=== PATIENT | female | born 1995 ===

== ENCOUNTER 2017-02-02 16:13 | Emergency (ER) | payer SELFPAY ==
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
--- NOTE | 2017-02-02 18:58 | CT ---
EXAM: CT Maxillofacial Without Intravenous Contrast CLINICAL HISTORY: 21 years old, female; Pain; Eye pain and face pain; Left; Additional info: Facial pain TECHNIQUE: Axial computed tomography images of the face without intravenous contrast. All CT scans at this facility use one or more dose reduction techniques, viz.: automated exposure control; ma/kV adjustment per patient size (including targeted exams where dose is matched to indication; i.e. head); or iterative reconstruction technique. Coronal and sagittal reformatted images were created and reviewed. COMPARISON: No relevant prior studies available. FINDINGS: Bones: No acute fracture. Soft tissues: No significant abnormality appreciated on CT. Correlate clinically. Orbits: No acute abnormality as visualized. Sinuses: Minimal paranasal sinus disease, involving the left maxillary and ethmoid sinus. No air-fluid levels. Evidence of supernumerary tooth within the left mandible. IMPRESSION: Negative for acute fracture.
--- NOTE | 2017-02-02 19:02 | CT ---
EXAM: CT Cervical Spine Without Intravenous Contrast CLINICAL HISTORY: 21 years old, female; Pain; Neck pain TECHNIQUE: Axial computed tomography images of the cervical spine without intravenous contrast. All CT scans at this facility use one or more dose reduction techniques, viz.: automated exposure control; ma/kV adjustment per patient size (including targeted exams where dose is matched to indication; i.e. head); or iterative reconstruction technique. Coronal and sagittal reformatted images were created and reviewed. COMPARISON: No relevant prior studies available. FINDINGS: Vertebrae/discs: No acute fracture. No acute findings. No severe spinal canal stenosis. Mild degenerative changes, most notable at C5-C6 with mild disc osteophyte formation. Straightening/reversal of the cervical lordosis. Soft tissues: No acute findings. Lung apices: No acute abnormality as visualized. IMPRESSION: Negative for acute fracture. Details/findings as above.
[2017-02-02 19:23] VITALS: BP 117/84; PULSE 76; RESP 20; TEMP 98.4; O2SAT 100
== END 2017-02-02 20:20 | disposition home or self-care (01) ==
LOC: C.ER 16:13
DX: S00.83XA Contusion of other part of head, initial encounter (principal); W22.8XXA Striking against or struck by other objects, initial encounter

== ENCOUNTER 2018-07-12 21:06 | Inpatient (IN) | payer MEDICAID ==
[2018-07-12] MEDS ORDERED: Sodium Chloride 0.9% 1,000 ML IV ONE (21:55)
--- NOTE | 2018-07-12 21:55 | C.PDOC ---
History Of Present Illness 22 year old female brought to ED by BLS for intention to overdose on 60 pills of Tylenol at 7pm per friend. Patient is a poor historian. Dose is unknown and co- ingestion is unknown. Patient vomited prior to arrival. Patient reports no symptoms at this time. 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 UNK DOSE. UNK OTHER COINGESTION. 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 PT REPORTS NO SX @ THIS TIME ROS LIMITED EXAM NONTOXIC HEENT ANICTER MMM ABD NEG PSYCH CALM REFUSING TO TALK NO ACUTE PSYCHOSIS, INTOX REMAINDER NEG Time Seen by Provider: 07/12/18 21:45 History Per: Patient History/Exam Limitations: other (poor historian) Onset/Duration Of Symptoms: Hrs (3) Current Symptoms Are (Timing): Gone Suicide/Self Injury Attempted (Context): Ingestion Ingestion Of Substance: Tylenol Modifying Factor(s): None Associated Symptoms: Suicidal Thoughts, Suicidal Plan, Other (suicidal attempt) Additional History Per: EMS, Friend Past Medical History Reviewed: Historical Data, Nursing Documentation, Vital Signs - Medical History PMH: Anemia (THALASSEMIA), Sickle Cell Disease ("FALCEMICA" IN [place]) Surgical History: No Surg Hx Family History: States: Unknown Family Hx - Social History Hx Alcohol Use: No Hx Substance Use: No - Immunization History Hx Tetanus Toxoid Vaccination: No Hx Influenza Vaccination: No Hx Pneumococcal Vaccination: No Review Of Systems Psych: Positive for: Suicidal ideation, Other (suicidal attempt) Physical Exam - Physical Exam Appears: Non-toxic Skin: Normal Color, Warm, Dry Head: Atraumatic, Normacephalic Eye(s): bilateral: Normal Inspection (anicteric), PERRL, EOMI Oral Mucosa: Moist Neck: Normal ROM, Supple Chest: Symmetrical, No Deformity Cardiovascular: Rhythm Regular, No Murmur Respiratory: No Accessory Muscle Use, No Rales, No Rhonchi, No Wheezing, Other (NARD) Gastrointestinal/Abdominal: Soft, No Tenderness, No Distention, No Guarding, No Rebound Extremity: Capillary Refill (<2 seconds) Extremity: Bilateral: Atraumatic, Normal Color And Temperature, Normal ROM Pulses: Left Radial: Normal, Right Radial: Normal Neurological/Psych: Oriented x3, Other (calm, refusing to talk, no acute psychosis, intoxicated) Gait: Steady ED Course And Treatment - Laboratory Results Result Diagrams: 07/12/18 22:47 07/12/18 22:47 ECG: Interpreted By Me ECG Rhythm: Sinus Rhythm ECG Interpretation: Normal Rate From EC - Radiology CXR: Interpreted by Me CXR Interpretation: Yes: No Acute Disease Progress Note: Labs ordered with drug screen, UA, CBC, EKG and CXR. Patient given Acetadote, IV fluids, and Zofran Progress - Re-Evaluation Re-evaluation Note: 07/12/18 22:33 PER POISON CTR, ADVISE ACETADOTE, REPEAT ACET LEVEL @2300 07/12/18 23:12 AO3, NONTOXIC APPEARS COMFORTABLE NAD. VSS. D/W DR MONTILLA, NO INDICATION FOR ICU ADMISSION FOR ACETADOTE IV D/W DR BAGLEY WILL ADMIT - Data Reviewed Data Reviewed: Lab, Diagnostic imaging, EKG, Old records - Critical Care Citical Care: Excluding Proc Time Critical Care Time: 90 minutes Disposition Counseled Patient/Family Regarding: Studies Performed, Diagnosis - Disposition Disposition: HOSPITALIZED Disposition Time: 23:15 Condition: SERIOUS - POA Present On Arrival: None - Clinical Impression Clinical Impression: Tylenol overdose, Suicide attempt - Scribe Statement The provider has reviewed the documentation as recorded by the Scribe (Rosanne Heller) All medical record entries made by the Scribe were at my direction and personally dictated by me. I have reviewed the chart and agree that the record accurately reflects my personal performance of the history, physical exam, medical decision making, and the department course for this patient. I have also personally directed, reviewed, and agree with the discharge instructions and disposition.
[2018-07-12 22:34] VITALS: BMI 20.3
[2018-07-12] MEDS ORDERED: WATER IVPB STA (22:34)
[2018-07-12] MEDS ORDERED: DEXTROSE 5% IVPB STA (22:34)
[2018-07-12] MEDS ORDERED: ACETYLCYSTEINE IVPB STA (22:34)
[2018-07-12 22:53] LABS: BASO % 0.5 % (0.0-2.0); EOS # 0.1 K/uL (0.0-0.7); EOS % 0.9 % (0.0-4.0); HEMOGLOBIN 12.7 g/dL (11.0-16.0); LYMPH # 2.7 K/uL (1.0-4.3); LYMPH % 30.5 % (20.0-40.0); MEAN CELL VOLUME 85.6 fL (81.0-99.0); MEAN CORPUSCULAR HGB CONC 33.9 g/dL (33.0-37.0); MEAN PLATELET VOLUME 9.9 fL (7.2-11.7); MONO # 0.6 K/uL (0.0-0.8); MONO % 6.7 % (0.0-10.0); NEUT # 5.4 K/uL (1.8-7.0); NEUT % 61.4 % (50.0-75.0); RBC 4.36 Mil/uL (3.80-5.20); WHITE BLOOD COUNT 8.8 K/uL (4.8-10.8)
[2018-07-12 23:03] LABS: HCG,QUALITATIVE URINE NEGATIVE (NEGATIVE)
[2018-07-12 23:05] LABS: ALB/GLOB RATIO 1.3 (1.0-2.1); ALBUMIN 4.6 g/dL (3.5-5.0); ALT/SGPT 14 U/L (9-52); AST/SGOT 24 U/L (14-36); BLOOD UREA NITROGEN 9 mg/dL (7-17); CALCIUM 9.7 mg/dl (8.6-10.4); GFR NON-AFRICAN AMERICAN > 60
[2018-07-12 23:06] LABS: SALICYLATE 1.1 {null, mg/dL 1}; SQUAMOUS EPITHIAL 54 /hpf (0-5); URINE BACTERIA RARE (<OCC); URINE BILIRUBIN NEGATIVE (NEGATIVE); URINE BLOOD NEGATIVE (NEGATIVE); URINE CLARITY Hazy (Clear); URINE COLOR Yellow (YELLOW); URINE GLUCOSE (UA) NORMAL (Normal); URINE LEUKOCYTE ESTERASE TRACE Leu/uL (Negative); URINE PROTEIN NEGATIVE (NEGATIVE); URINE UROBILINOGEN NORMAL mg/dL (0.2-1.0)
[2018-07-12 23:09] LABS: BARBITURATES, UR NEGATIVE (NEGATIVE); BENZODIAZEPINES, UR NEGATIVE (NEGATIVE); OPIATES, UR NEGATIVE (NEGATIVE); PHENCYCLIDINE, UR NEGATIVE (NEGATIVE)
--- NOTE | 2018-07-12 23:22 | CP.PCM.HP ---
<Maia Rolle - Last Filed: 07/13/18 00:17> History of Present Illness - History of Present Illness History of Present Illness: Resident History & Physical for Hospitalist Service Patient is a 22 year old female with past medical history of anemia presenting with sucidial ideations and Tylenol overdose. Per mother at bedside patient took sixty pills of Tylenol at 7 PM. She was found approximately an hour late unresponsive and EMS was called. Patient regained consciousness fifteen minutes later and vomited. Patient has been noted to have behavioral changes ever since her breakup with her boyfriend five months ago. Currently patient admits to nausea but denies any other complaints including fever, chills, chest pain, shortness of breath, abdominal pain, diarrhea, dysuria. History was obtained with assistance of photo stylist #[id number]. PMH: anemia PSH: SHx: denies alcohol, tobacco, illicit drug use FHx: denies Allergies: NKDA PMD: none Present on Admission - Present on Admission Any Indicators Present on Admission: No Review of Systems - Review of Systems All systems: reviewed and no additional remarkable complaints except (as per HPI) Past Patient History - Infectious Disease Hx of Infectious Diseases: None - Past Social History Smoking Status: Never Smoked - HEMATOLOGICAL/ONCOLOGICAL Hx Anemia: Yes (THALASSEMIA) Hx Sickle Cell Disease: Yes ("FALCEMICA" IN [place]) - PSYCHIATRIC Hx Substance Use: No - SURGICAL HISTORY Hx Section: Yes - ANESTHESIA Hx Anesthesia: Yes Hx Anesthesia Reactions: No Meds Allergies/Adverse Reactions: Allergies Allergy/AdvReac Type Severity Reaction Status Date / Time No Known Allergies Allergy Verified 07/12/18 21:56 Physical Exam - Constitutional Appears: Non-toxic, No Acute Distress - Head Exam Head Exam: ATRAUMATIC, NORMOCEPHALIC - Eye Exam Eye Exam: EOMI, Normal appearance, PERRL - ENT Exam ENT Exam: Mucous Membranes Moist - Respiratory Exam Respiratory Exam: Clear to Auscultation Bilateral, NORMAL BREATHING PATTERN. absent: Accessory Muscle Use, Rhonchi, Wheezes, Respiratory Distress - Cardiovascular Exam Cardiovascular Exam: REGULAR RHYTHM, +S1, +S2. absent: Tachycardia, Systolic Murmur - GI/Abdominal Exam GI & Abdominal Exam: Normal Bowel Sounds, Soft. absent: Distended, Guarding, Rebound, Rigid, Tenderness - Extremities Exam Extremities exam: Positive for: normal inspection - Neurological Exam Neurological exam: Alert, CN II-XII Intact, Oriented x3 - Psychiatric Exam Psychiatric exam: Depressed, Flat Affect - Skin Skin Exam: Dry, Intact, Normal Color, Warm Results - Vital Signs Recent Vital Signs: Last Vital Signs Temp 98.4 F 07/12/18 21:51 Pulse 96 H 07/12/18 22:20 Resp 20 07/12/18 22:20 BP 120/75 07/12/18 22:20 Pulse Ox 98 07/12/18 22:20 - Labs Result Diagrams: 07/12/18 22:47 07/12/18 22:47 Labs: Laboratory Results - last 24 hr 07/12/18 07/12/18 07/12/18 22:05 22:47 22:47 WBC 8.8 RBC 4.36 Hgb 12.7 Hct 37.3 MCV 85.6 MCH 29.0 MCHC 33.9 RDW 14.0 Plt Count 219 MPV 9.9 Neut % (Auto) 61.4 Lymph % (Auto) 30.5 [place] % (Auto) 6.7 Eos % (Auto) 0.9 Baso % (Auto) 0.5 Neut # (Auto) 5.4 Lymph # (Auto) 2.7 [place] # (Auto) 0.6 Eos # (Auto) 0.1 Baso # (Auto) 0.0 Sodium Potassium Chloride Carbon Dioxide Anion Gap BUN Creatinine Est GFR ( Amer) Est GFR (Non-Af Amer) POC Glucose (mg/dL) 99 Random Glucose Calcium Total Bilirubin AST ALT Alkaline Phosphatase Total Protein Albumin Globulin Albumin/Globulin Ratio Urine Color Yellow Urine Clarity Hazy Urine pH 7.0 Ur Specific [place] 1.011 Urine Protein Negative Urine Glucose (UA) Normal Urine Ketones Negative Urine Blood Negative Urine Nitrate Negative Urine Bilirubin Negative Urine Urobilinogen Normal Ur Leukocyte Esterase Trace Urine WBC (Auto) 9 H Urine RBC (Auto) 2 Ur Squamous Epith Cells 54 H Urine Bacteria Rare Urine HCG, Qual Negative Salicylates Urine Opiates Screen Urine Methadone Screen Acetaminophen Ur Barbiturates Screen Ur Phencyclidine Scrn Ur Amphetamines Screen U Benzodiazepines Scrn U Oth Cocaine Metabols U Cannabinoids Screen Alcohol, Quantitative 07/12/18 07/12/18 07/12/18 22:47 22:47 22:47 WBC RBC Hgb Hct MCV MCH MCHC RDW Plt Count MPV Neut % (Auto) Lymph % (Auto) [place] % (Auto) Eos % (Auto) Baso % (Auto) Neut # (Auto) Lymph # (Auto) [place] # (Auto) Eos # (Auto) Baso # (Auto) Sodium 138 Potassium 3.8 Chloride 102 Carbon Dioxide 25 Anion Gap 16 BUN 9 Creatinine 0.6 L Est GFR ( Amer) > 60 Est GFR (Non-Af Amer) > 60 POC Glucose (mg/dL) Random Glucose 97 Calcium 9.7 Total Bilirubin 0.3 AST 24 ALT 14 Alkaline Phosphatase 89 Total Protein 8.0 Albumin 4.6 Globulin 3.5 Albumin/Globulin Ratio 1.3 Urine Color Urine Clarity Urine pH Ur Specific [place] Urine Protein Urine Glucose (UA) Urine Ketones Urine Blood Urine Nitrate Urine Bilirubin Urine Urobilinogen Ur Leukocyte Esterase Urine WBC (Auto) Urine RBC (Auto) Ur Squamous Epith Cells Urine Bacteria Urine HCG, Qual Salicylates 1.1 Urine Opiates Screen Negative Urine Methadone Screen Negative Acetaminophen 188.0 H Ur Barbiturates Screen Negative Ur Phencyclidine Scrn Negative Ur Amphetamines Screen Negative U Benzodiazepines Scrn Negative U Oth Cocaine Metabols Negative U Cannabinoids Screen Negative Alcohol, Quantitative < 10 Assessment & Plan - Assessment and Plan (Free Text) Assessment: Patient is a 22 year old female with past medical history of presenting with sucidial ideations and Tylenol overdose Plan: Tylenol overdose - acetaminophen level 188 - poison control notified - continue acetadote as per posion control recs - UDS unremarkable, alcohol negative Suicidal ideation - Psychiatry consulted, appreciate recs - 1:1 sitter PPX - SCDs Case reviewed with Dr. Candice Rolle PGY-1 <Omid Harvey - Last Filed: 07/13/18 06:29> Results - Vital Signs Recent Vital Signs: Last Vital Signs Temp 98.8 F 07/13/18 00:30 Pulse 92 H 07/13/18 00:30 Resp 20 07/13/18 00:30 BP 126/88 07/13/18 00:30 Pulse Ox 98 07/13/18 00:30 - Labs Result Diagrams: 07/12/18 22:47 07/12/18 22:47 Labs: Laboratory Results - last 24 hr 07/12/18 07/12/18 07/12/18 22:05 22:47 22:47 WBC 8.8 RBC 4.36 Hgb 12.7 Hct 37.3 MCV 85.6 MCH 29.0 MCHC 33.9 RDW 14.0 Plt Count 219 MPV 9.9 Neut % (Auto) 61.4 Lymph % (Auto) 30.5 [place] % (Auto) 6.7 Eos % (Auto) 0.9 Baso % (Auto) 0.5 Neut # (Auto) 5.4 Lymph # (Auto) 2.7 [place] # (Auto) 0.6 Eos # (Auto) 0.1 Baso # (Auto) 0.0 Sodium Potassium Chloride Carbon Dioxide Anion Gap BUN Creatinine Est GFR ( Amer) Est GFR (Non-Af Amer) POC Glucose (mg/dL) 99 Random Glucose Calcium Total Bilirubin AST ALT Alkaline Phosphatase Total Protein Albumin Globulin Albumin/Globulin Ratio Urine Color Yellow Urine Clarity Hazy Urine pH 7.0 Ur Specific [place] 1.011 Urine Protein Negative Urine Glucose (UA) Normal Urine Ketones Negative Urine Blood Negative Urine Nitrate Negative Urine Bilirubin Negative Urine Urobilinogen Normal Ur Leukocyte Esterase Trace Urine WBC (Auto) 9 H Urine RBC (Auto) 2 Ur Squamous Epith Cells 54 H Urine Bacteria Rare Urine HCG, Qual Negative Salicylates Urine Opiates Screen Urine Methadone Screen Acetaminophen Ur Barbiturates Screen Ur Phencyclidine Scrn Ur Amphetamines Screen U Benzodiazepines Scrn U Oth Cocaine Metabols U Cannabinoids Screen Alcohol, Quantitative 07/12/18 07/12/18 07/12/18 22:47 22:47 22:47 WBC RBC Hgb Hct MCV MCH MCHC RDW Plt Count MPV Neut % (Auto) Lymph % (Auto) [place] % (Auto) Eos % (Auto) Baso % (Auto) Neut # (Auto) Lymph # (Auto) [place] # (Auto) Eos # (Auto) Baso # (Auto) Sodium 138 Potassium 3.8 Chloride 102 Carbon Dioxide 25 Anion Gap 16 BUN 9 Creatinine 0.6 L Est GFR ( Amer) > 60 Est GFR (Non-Af Amer) > 60 POC Glucose (mg/dL) Random Glucose 97 Calcium 9.7 Total Bilirubin 0.3 AST 24 ALT 14 Alkaline Phosphatase 89 Total Protein 8.0 Albumin 4.6 Globulin 3.5 Albumin/Globulin Ratio 1.3 Urine Color Urine Clarity Urine pH Ur Specific [place] Urine Protein Urine Glucose (UA) Urine Ketones Urine Blood Urine Nitrate Urine Bilirubin Urine Urobilinogen Ur Leukocyte Esterase Urine WBC (Auto) Urine RBC (Auto) Ur Squamous Epith Cells Urine Bacteria Urine HCG, Qual Salicylates 1.1 Urine Opiates Screen Negative Urine Methadone Screen Negative Acetaminophen 188.0 H Ur Barbiturates Screen Negative Ur Phencyclidine Scrn Negative Ur Amphetamines Screen Negative U Benzodiazepines Scrn Negative U Oth Cocaine Metabols Negative U Cannabinoids Screen Negative Alcohol, Quantitative < 10 07/13/18 00:03 WBC RBC Hgb Hct MCV MCH MCHC RDW Plt Count MPV Neut % (Auto) Lymph % (Auto) [place] % (Auto) Eos % (Auto) Baso % (Auto) Neut # (Auto) Lymph # (Auto) [place] # (Auto) Eos # (Auto) Baso # (Auto) Sodium Potassium Chloride Carbon Dioxide Anion Gap BUN Creatinine Est GFR ( Amer) Est GFR (Non-Af Amer) POC Glucose (mg/dL) Random Glucose Calcium Total Bilirubin AST ALT Alkaline Phosphatase Total Protein Albumin Globulin Albumin/Globulin Ratio Urine Color Urine Clarity Urine pH Ur Specific [place] Urine Protein Urine Glucose (UA) Urine Ketones Urine Blood Urine Nitrate Urine Bilirubin Urine Urobilinogen Ur Leukocyte Esterase Urine WBC (Auto) Urine RBC (Auto) Ur Squamous Epith Cells Urine Bacteria Urine HCG, Qual Salicylates Urine Opiates Screen Urine Methadone Screen Acetaminophen 187.0 H Ur Barbiturates Screen Ur Phencyclidine Scrn Ur Amphetamines Screen U Benzodiazepines Scrn U Oth Cocaine Metabols U Cannabinoids Screen Alcohol, Quantitative Assessment & Plan - Date & Time Date: 07/13/18 (I have seen and examined the patient. I agree with the findings and plan of care as documented by Dr. Rolle. Patient with suicide attempt with Tylenol overdose. Poison control contacted by ED. Continue Acetadote as per poison control instructions. Consult to psych. Monitor for acute changes.) Time: 01:00 Attending/Attestation - Attestation I have personally seen and examined this patient.: Yes I have fully participated in the care of the patient.: Yes I have reviewed all pertinent clinical information: Yes
[2018-07-12] MEDS ORDERED: DEXTROSE 5% IVPB ONE (23:45)
[2018-07-12] MEDS ORDERED: WATER IVPB ONE (23:45)
[2018-07-12] MEDS ORDERED: ACETYLCYSTEINE IVPB ONE (23:45)
[2018-07-13] MEDS: ACETYLCYSTEINE IVPB ONE (00:35)
[2018-07-13] MEDS: WATER IVPB ONE (00:35)
[2018-07-13] MEDS: DEXTROSE 5% IVPB ONE (00:35)
[2018-07-13] MEDS ORDERED: DEXTROSE 5% IVPB ONE ×2 (02:56→02:59)
[2018-07-13] MEDS ORDERED: ACETYLCYSTEINE IVPB ONE ×2 (02:56→02:59)
[2018-07-13] MEDS ORDERED: WATER IVPB ONE ×2 (02:56→02:59)
--- NOTE | 2018-07-13 07:42 | CP.PCM.PN ---
<JessicaFreemann - Last Filed: 07/13/18 15:16> Subjective - Date & Time of Evaluation Date of Evaluation: 07/13/18 Time of Evaluation: 07:41 - Subjective Subjective: Progress Note for Dr. Siddiqui Service Patient seen and examined at bedside. Per nursing no acute events occurred overnight. Patient reports a little headache during today's visit. Patient denies any suicidal ideation or homicidal ideation during the examination. Objective - Vital Signs/Intake and Output Vital Signs (last 24 hours): Temp Pulse Resp BP Pulse Ox 98.8 F 98 H 20 126/88 98 07/13/18 00:30 07/13/18 05:07 07/13/18 00:30 07/13/18 00:30 07/13/18 00:30 Intake and Output: 07/13/18 07/13/18 06:59 18:59 Intake Total 800 Balance 800 - Medications Medications: Current Medications Sodium Chloride (Sodium Chloride 0.9%) 1,000 mls @ 100 mls/hr IV .Q10H ONE Stop: 07/13/18 07:54 Last Admin: 07/12/18 22:00 Dose: 100 mls/hr Acetylcysteine 5,720 mg/ (Dextrose) 528.6 mls @ 33.038 mls/hr IVPB ONCE ONE Stop: 07/13/18 18:58 Last Admin: 07/13/18 04:30 Dose: 33.038 mls/hr - Labs Labs: 07/12/18 22:47 07/12/18 22:47 - Head Exam Head Exam: ATRAUMATIC, NORMAL INSPECTION - Eye Exam Eye Exam: EOMI, Normal appearance, PERRL. absent: Periorbital tenderness Pupil Exam: NORMAL ACCOMODATION, PERRL. absent: Irregular, Unequal - ENT Exam ENT Exam: Mucous Membranes Moist, Normal Oropharynx - Respiratory Exam Respiratory Exam: Clear to Ausculation Bilateral, NORMAL BREATHING PATTERN. absent: Prolonged Expiratory Phase, Respiratory Distress - Cardiovascular Exam Cardiovascular Exam: REGULAR RHYTHM, RRR, +S1, +S2. absent: Gallop, Rubs - GI/Abdominal Exam GI & Abdominal Exam: Soft, Normal Bowel Sounds. absent: Rigid, Hyperactive Bowel Sounds - Back Exam Back Exam: NORMAL INSPECTION. absent: CVA tenderness (R), paraspinal tenderness - Neurological Exam Neurological Exam: Alert, Awake, CN II-XII Intact, Oriented x3 - Psychiatric Exam Psychiatric exam: Normal Affect, Normal Mood. absent: Depressed - Skin Skin Exam: Dry, Intact. absent: Erythema, Rash Assessment and Plan - Assessment and Plan (Free Text) Plan: Patient is a 22 year old female with past medical history of presenting with sucidial ideations and Tylenol overdose Plan: Tylenol overdose - acetaminophen level 188 on admission. - Repeat acetaminophen level 187. - poison control notified - continue acetadote as per posion control recs - UDS unremarkable, alcohol negative -Neuro checks q4 Suicidal ideation - Psychiatry consulted, appreciate recs - 1:1 sitter PPX - SCDs Dispo: Repeat coag's and acetaminophen level pending. Will continue to monitor. Case reviewed with Dr. Chen Lopez PGY2 <Maggie Siddiqui - Last Filed: 07/13/18 16:33> Objective - Vital Signs/Intake and Output Vital Signs (last 24 hours): Temp Pulse Resp BP Pulse Ox 98.3 F 64 18 122/76 100 07/13/18 07:30 07/13/18 07:30 07/13/18 07:30 07/13/18 07:30 07/13/18 07:30 Intake and Output: 07/13/18 07/13/18 06:59 18:59 Intake Total 800 1364 Balance 800 1364 - Medications Medications: Current Medications Acetylcysteine 5,720 mg/ (Dextrose) 528.6 mls @ 33.038 mls/hr IVPB ONCE ONE Stop: 07/13/18 18:58 Last Admin: 07/13/18 04:30 Dose: 33.038 mls/hr - Labs Labs: 07/12/18 22:47 07/12/18 22:47 PT 16.5 SECONDS (9.7-12.2) H 07/13/18 08:50 INR 1.5 07/13/18 08:50 Attending/Attestation - Attestation I have personally seen and examined this patient.: Yes I have fully participated in the care of the patient.: Yes I have reviewed all pertinent clinical information, including history, physical exam and plan: Yes Notes (Text): seen and examined. 1;1 sitter next to her no vomiting,no abdominal pain,not hungry.didn't eat breakfast pending psychiatrist eval repeat labs at 6pm and follow poison control's recommendation
[2018-07-13 09:02] LABS: INR 1.5; PROTHROMBIN TIME 16.5 SECONDS (9.7-12.2)
[2018-07-13 16:49] LABS: INR 1.6; PROTHROMBIN TIME 17.8 SECONDS (9.7-12.2)
--- NOTE | 2018-07-13 17:02 | RAD ---
Date of service: 07/12/2018 PROCEDURE: CHEST RADIOGRAPH, 1 VIEW HISTORY: Overdosed COMPARISON: None available. FINDINGS: LUNGS: Clear. PLEURA: No pneumothorax or pleural fluid seen. CARDIOVASCULAR: No aortic atherosclerotic calcification present. Normal. OSSEOUS STRUCTURES: No significant abnormalities. VISUALIZED UPPER ABDOMEN: Normal. OTHER FINDINGS: None. IMPRESSION: No active disease.
[2018-07-13 17:47] LABS: ALB/GLOB RATIO 1.4 (1.0-2.1); ALBUMIN 4.1 g/dL (3.5-5.0); ALT/SGPT 16 U/L (9-52); AST/SGOT 27 U/L (14-36); BLOOD UREA NITROGEN 5 mg/dL (7-17); CALCIUM 9.1 mg/dl (8.6-10.4); GFR NON-AFRICAN AMERICAN > 60
[2018-07-14 07:19] LABS: BASO % 0.7 % (0.0-2.0); EOS # 0.2 K/uL (0.0-0.7); EOS % 2.3 % (0.0-4.0); LYMPH % 40.1 % (20.0-40.0); MEAN CELL VOLUME 84.8 fL (81.0-99.0); MEAN CORPUSCULAR HEMOGLOBIN 29.3 pg (27.0-31.0); MEAN CORPUSCULAR HGB CONC 34.5 g/dL (33.0-37.0); MEAN PLATELET VOLUME 9.8 fL (7.2-11.7); MONO # 0.4 K/uL (0.0-0.8); MONO % 5.3 % (0.0-10.0); NEUT # 3.8 K/uL (1.8-7.0); NEUT % 51.6 % (50.0-75.0); NRBC % 0.1 % (0.0-2.0); RBC 4.09 Mil/uL (3.80-5.20); RED CELL DISTRIBUTION WIDTH 14.2 % (11.5-14.5); WHITE BLOOD COUNT 7.5 K/uL (4.8-10.8)
[2018-07-14 07:39] LABS: ALB/GLOB RATIO 1.3 (1.0-2.1); ALBUMIN 3.9 g/dL (3.5-5.0); ALT/SGPT 23 U/L (9-52); AST/SGOT 19 U/L (14-36); BLOOD UREA NITROGEN 6 mg/dL (7-17); CALCIUM 9.3 mg/dl (8.6-10.4); GFR NON-AFRICAN AMERICAN > 60
[2018-07-14 08:21] LABS: INR 1.5; PROTHROMBIN TIME 16.1 SECONDS (9.7-12.2)
--- NOTE | 2018-07-14 11:47 | CP.PCM.PN ---
<Erich Hughes - Last Filed: 07/14/18 13:17> Subjective - Date & Time of Evaluation Date of Evaluation: 07/14/18 Time of Evaluation: 09:30 - Subjective Subjective: Progress Note for Hospitalist Service, Dr. Siddiqui Pt seen and examined at bedside this am. Denies any acute complaints, resting comfortably at bedside. No acute events reported overnight by staff. Tolerating diet, voiding well. Denies headache, dizziness, chest pain, sob, n/v/d/c, abd pain, urinary complaints, or other symptoms. Objective - Vital Signs/Intake and Output Vital Signs (last 24 hours): Temp Pulse Resp BP Pulse Ox 98.3 F 89 20 102/65 98 07/14/18 07:00 07/14/18 07:00 07/14/18 07:00 07/14/18 07:00 07/14/18 07:00 Intake and Output: 07/14/18 07/14/18 06:59 18:59 Intake Total 504 Balance 504 - Labs Labs: 07/14/18 07:06 07/14/18 07:06 PT 16.1 SECONDS (9.7-12.2) H 07/14/18 07:06 INR 1.5 07/14/18 07:06 - Constitutional Appears: Non-toxic, No Acute Distress - Head Exam Head Exam: ATRAUMATIC, NORMOCEPHALIC - Eye Exam Eye Exam: EOMI, Normal appearance, PERRL - ENT Exam ENT Exam: Mucous Membranes Moist - Neck Exam Neck Exam: Full ROM, Normal Inspection. absent: Tenderness - Respiratory Exam Respiratory Exam: Clear to Ausculation Bilateral, NORMAL BREATHING PATTERN. absent: Rales, Rhonchi, Wheezes - Cardiovascular Exam Cardiovascular Exam: REGULAR RHYTHM, +S1, +S2. absent: Gallop, Rubs, Murmur - GI/Abdominal Exam GI & Abdominal Exam: Soft, Normal Bowel Sounds. absent: Distended, Guarding, Tenderness, Organomegaly - Extremities Exam Extremities Exam: Full ROM, Normal Capillary Refill, Normal Inspection. absent: Pedal Edema, Tenderness - Back Exam Back Exam: Full ROM, NORMAL INSPECTION. absent: paraspinal tenderness - Neurological Exam Neurological Exam: Alert, Awake, CN II-XII Intact, Oriented x3 - Skin Skin Exam: Dry, Intact, Normal Color, Warm Assessment and Plan - Assessment and Plan (Free Text) Assessment: 22 year old female with PMhx anemia presenting with suicidal ideation, s/p Tylenol overdose. Plan: Acetaminophen Overdose -Acetaminophen level 188 on admission; repeat levels 188, < 10 as of 07/13/18 -Poison control notified, states today that pt is currently outside 21 hr pro tocol window for treatment/monitoring, does not need LFTs/coags further trended at this time -Can d/c Acetadote as per Poison control -UDS negative, EtOH level neg -Neuro checks q4h -EKG on admission: NSR at 86 bpm, no acute St-t wave changes appreciated Suicidal Ideation -Psychiatry consulted, recs appreciated -1:1 sitter PPX: SCDs Dispo: Pending Psychiatry evaluation. Pt seen, examined with, and plan discussed with Dr. Siddiqui, attending physician. Erich Hughes DO PGY-1, Reception Specialist Pager #[phone] <Maggie Siddiqui - Last Filed: 07/19/18 11:14> Objective - Vital Signs/Intake and Output Vital Signs (last 24 hours): Temp Pulse Resp BP Pulse Ox 98.3 F 77 18 90/60 L 98 07/19/18 06:25 07/19/18 06:25 07/19/18 06:25 07/19/18 06:25 07/15/18 15:10 - Medications Medications: Current Medications Hydroxyzine HCl (Atarax) 25 mg PO Q6H PRN PRN Reason: Anxiety Last Admin: 07/16/18 04:02 Dose: 25 mg Mirtazapine (Remeron) 15 mg PO HS IRWIN Last Admin: 07/18/18 22:00 Dose: 15 mg Sertraline HCl (Zoloft) 25 mg PO DAILY IRWIN Last Admin: 07/19/18 09:14 Dose: 25 mg Trazodone HCl (Desyrel) 50 mg PO HS PRN PRN Reason: Insomnia - Labs Labs: 07/16/18 07:29 07/16/18 07:16 PT 16.1 SECONDS (9.7-12.2) H 07/14/18 07:06 INR 1.5 07/14/18 07:06 Attending/Attestation - Attestation I have personally seen and examined this patient.: Yes I have fully participated in the care of the patient.: Yes I have reviewed all pertinent clinical information, including history, physical exam and plan: Yes Notes (Text): Seen and examined by me with the resident. continue 1;1 monitor LFT
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
[2018-07-15 07:53] LABS: BASO % 0.6 % (0.0-2.0); EOS # 0.2 K/uL (0.0-0.7); EOS % 3.7 % (0.0-4.0); HEMOGLOBIN 12.1 g/dL (11.0-16.0); LYMPH # 2.3 K/uL (1.0-4.3); LYMPH % 35.8 % (20.0-40.0); MEAN CELL VOLUME 85.3 fL (81.0-99.0); MEAN CORPUSCULAR HEMOGLOBIN 29.5 pg (27.0-31.0); MEAN CORPUSCULAR HGB CONC 34.6 g/dL (33.0-37.0); MEAN PLATELET VOLUME 9.6 fL (7.2-11.7); MONO # 0.5 K/uL (0.0-0.8); MONO % 7.3 % (0.0-10.0); NEUT # 3.4 K/uL (1.8-7.0); NEUT % 52.6 % (50.0-75.0); NRBC % 0.1 % (0.0-2.0); RBC 4.09 Mil/uL (3.80-5.20); RED CELL DISTRIBUTION WIDTH 13.9 % (11.5-14.5); WHITE BLOOD COUNT 6.5 K/uL (4.8-10.8)
[2018-07-15 08:19] LABS: ALB/GLOB RATIO 1.5 (1.0-2.1); ALBUMIN 4.2 g/dL (3.5-5.0); ALT/SGPT 18 U/L (9-52); AST/SGOT 19 U/L (14-36); BLOOD UREA NITROGEN 7 mg/dL (7-17); CALCIUM 9.1 mg/dl (8.6-10.4); GFR NON-AFRICAN AMERICAN > 60
[2018-07-15 08:57] VITALS: O2SAT 98
[2018-07-15 19:03] LABS: CK-MB < 0.22 ng/mL (0.0-3.38)
--- NOTE | 2018-07-15 19:15 | CP.PCM.DIS ---
<Erich Hughes - Last Filed: 07/15/18 19:16> Provider - Provider Date of Admission: 07/12/18 23:16 Attending physician: Prakash Amaya Primary care physician: none Consults: 07/13/18 00:10 Psychiatry Consult Routine Comment: Consulting Provider: Prakash Amaya Consulting Physician: Prakash Amaya Reason for Consult: suicide attempt 07/13/18 00:40 Social Work Referral Routine Comment: suicidal Physician Instructions: Reason For Exam: suicidal Time Spent in preparation of Discharge (in minutes): 35 Diagnosis - Discharge Diagnosis (1) Major depressive disorder Status: Acute (2) Suicide attempt Status: Acute (3) Tylenol overdose Status: Resolved Hospital Course - Lab Results Lab Results: Most Recent Lab Values WBC 6.5 K/uL (4.8-10.8) 07/15/18 07:33 RBC 4.09 Mil/uL (3.80-5.20) 07/15/18 07:33 Hgb 12.1 g/dL (11.0-16.0) 07/15/18 07:33 Hct 34.9 % (34.0-47.0) 07/15/18 07:33 MCV 85.3 fL (81.0-99.0) 07/15/18 07:33 MCH 29.5 pg (27.0-31.0) 07/15/18 07:33 MCHC 34.6 g/dL (33.0-37.0) 07/15/18 07:33 RDW 13.9 % (11.5-14.5) 07/15/18 07:33 Plt Count 217 K/uL (130-400) 07/15/18 07:33 MPV 9.6 fL (7.2-11.7) 07/15/18 07:33 Neut % (Auto) 52.6 % (50.0-75.0) 07/15/18 07:33 Lymph % (Auto) 35.8 % (20.0-40.0) 07/15/18 07:33 Titus % (Auto) 7.3 % (0.0-10.0) 07/15/18 07:33 Eos % (Auto) 3.7 % (0.0-4.0) 07/15/18 07:33 Baso % (Auto) 0.6 % (0.0-2.0) 07/15/18 07:33 Neut # (Auto) 3.4 K/uL (1.8-7.0) 07/15/18 07:33 Lymph # (Auto) 2.3 K/uL (1.0-4.3) 07/15/18 07:33 Titus # (Auto) 0.5 K/uL (0.0-0.8) 07/15/18 07:33 Eos # (Auto) 0.2 K/uL (0.0-0.7) 07/15/18 07:33 Baso # (Auto) 0.0 K/uL (0.0-0.2) 07/15/18 07:33 PT 16.1 SECONDS (9.7-12.2) H 07/14/18 07:06 INR 1.5 07/14/18 07:06 Sodium 140 mmol/L (132-148) 07/15/18 07:33 Potassium 4.0 mmol/L (3.6-5.2) 07/15/18 07:33 Chloride 105 mmol/L (98-107) 07/15/18 07:33 Carbon Dioxide 24 mmol/L (22-30) 07/15/18 07:33 Anion Gap 15 (10-20) 07/15/18 07:33 BUN 7 mg/dL (7-17) 07/15/18 07:33 Creatinine 0.6 mg/dL (0.7-1.2) L 07/15/18 07:33 Est GFR ( Amer) > 60 07/15/18 07:33 Est GFR (Non-Af Amer) > 60 07/15/18 07:33 POC Glucose (mg/dL) 99 mg/dL (65-110) 07/12/18 22:05 Random Glucose 87 mg/dL (65-105) 07/15/18 07:33 Calcium 9.1 mg/dl (8.6-10.4) 07/15/18 07:33 Total Bilirubin 0.3 mg/dL (0.2-1.3) 07/15/18 07:33 AST 19 U/L (14-36) 07/15/18 07:33 ALT 18 U/L (9-52) 07/15/18 07:33 Alkaline Phosphatase 69 U/L (38-126) 07/15/18 07:33 Total Creatine Kinase 29 U/L (30-135) L 07/15/18 17:24 CK-MB (Mass) < 0.22 ng/mL (0.0-3.38) 07/15/18 17:24 Troponin I < 0.0120 ng/mL (0.00-0.120) 07/15/18 17:24 Total Protein 7.0 g/dL (6.3-8.3) 07/15/18 07:33 Albumin 4.2 g/dL (3.5-5.0) 07/15/18 07:33 Globulin 2.8 gm/dL (2.2-3.9) 07/15/18 07: Albumin/Globulin Ratio 1.5 (1.0-2.1) 07/15/18 07:33 Urine Color Yellow (YELLOW) 07/12/18 22:47 Urine Clarity Hazy (Clear) 07/12/18 22:47 Urine pH 7.0 (5.0-8.0) 07/12/18 22:47 Ur Specific [place] 1.011 (1.003-1.030) 07/12/18 22:47 Urine Protein Negative mg/dL (NEGATIVE) 07/12/18 22:47 Urine Glucose (UA) Normal mg/dL (Normal) 07/12/18 22:47 Urine Ketones Negative mg/dL (NEGATIVE) 07/12/18 22:47 Urine Blood Negative (NEGATIVE) 07/12/18 22:47 Urine Nitrate Negative (NEGATIVE) 07/12/18 22:47 Urine Bilirubin Negative (NEGATIVE) 07/12/18 22:47 Urine Urobilinogen Normal mg/dL (0.2-1.0) 07/12/18 22:47 Ur Leukocyte Esterase Trace Priscilla/uL (Negative) 07/12/18 22:47 Urine WBC (Auto) 9 /hpf (0-5) H 07/12/18 22:47 Urine RBC (Auto) 2 /hpf (0-3) 07/12/18 22:47 Ur Squamous Epith Cells 54 /hpf (0-5) H 07/12/18 22:47 Urine Bacteria Rare (<OCC) 07/12/18 22:47 Urine HCG, Qual Negative (NEGATIVE) 05/25/19 22:47 Salicylates 1.1 mg/dL 1 07/12/18 22:47 Urine Opiates Screen Negative (NEGATIVE) 07/12/18 22:47 Urine Methadone Screen Negative (NEGATIVE) 07/12/18 22:47 Acetaminophen < 10.0 ug/mL (10.0-30.0) L 07/13/18 16:33 Ur Barbiturates Screen Negative (NEGATIVE) 07/12/18 22:47 Ur Phencyclidine Scrn Negative (NEGATIVE) 07/12/18 22:47 Ur Amphetamines Screen Negative (NEGATIVE) 07/12/18 22:47 U Benzodiazepines Scrn Negative (NEGATIVE) 07/12/18 22:47 U Oth Cocaine Metabols Negative (NEGATIVE) 07/12/18 22:47 U Cannabinoids Screen Negative (NEGATIVE) 07/12/18 22:47 Alcohol, Quantitative < 10 mg/dl (0-10) 07/12/18 22:47 - Hospital Course Hospital Course: HPI at time of admission: "Patient is a 22 year old female with past medical history of anemia presenting with sucidial ideations and Tylenol overdose. Per mother at bedside patient took sixty pills of Tylenol at 7 PM. She was found approximately an hour late unresponsive and EMS was called. Patient regained consciousness fifteen minutes later and vomited. Patient has been noted to have behavioral changes ever since her breakup with her boyfriend five months ago. Currently patient admits to nausea but denies any other complaints including fever, chills, chest pain, shortness of breath, abdominal pain, diarrhea, dysuria. History was obtained with assistance of zoo caretaker #[id number]." Hospital Course: Pertinent imaging: CXR neg, EKG NSR with no acute St-T wave changes. Pt was admitted for Tylenol overdose and suicidal ideation. Poison control was contacted who recommended Acetadote, and monitoring of Tylenol levels, LFTs and coags. LFTs were wnl, coags normalized after 21-hr protocol period. Pt was asymptomatic during admission. Psychiatry (Dr. Amaya) was consulted for suicide attempt, depression, and pt s igned voluntary admission to be admitted to Psych floor for further management of depression. Prior to transfer to [facility], pt c/o chest pain. On exam, pt had tenderness to palpation in mid-sternal region. Troponin was ordered which will be followed up while pt is on Psych floor. Due to no cardiac risk factors, chest pain likely 2/2 costochondritis. Plan d/w Dr. Alarcon. attending physician. This is a summary of the hospital course. For further details, please refer to the hospital EMR. Discharge Exam - Head Exam Head Exam: ATRAUMATIC, NORMOCEPHALIC - Eye Exam Eye Exam: EOMI, Normal appearance, PERRL - ENT Exam ENT Exam: Mucous Membranes Moist - Respiratory Exam Respiratory Exam: Clear to PA & Lateral, NORMAL BREATHING PATTERN, UNREMARKABLE. absent: Rales, Rhonchi, Wheezes - Cardiovascular Exam Cardiovascular Exam: REGULAR RHYTHM, +S1, +S2. absent: Gallop, Rubs, Systolic Murmur Additional comments: Chest wall tenderness to palpation on exam - GI/Abdominal Exam GI & Abdominal Exam: Normal Bowel Sounds, Soft, Unremarkable. absent: Tenderness - Extremities Exam Extremities exam: full ROM, normal capillary refill, normal inspection, pedal pulses present - Neurological Exam Neurological exam: Alert, CN II-XII Intact, Oriented x3, Reflexes Normal - Skin Skin Exam: Dry, Intact, Warm Discharge Plan - Follow Up Plan Condition: SERIOUS Disposition: HOME/ ROUTINE <Caleb Alarcon H - Last Filed: 07/16/18 07:28> Provider - Provider Date of Admission: 07/12/18 23:16 Attending physician: Prakash Amaya Consults: 07/13/18 00:10 Psychiatry Consult Routine Comment: Consulting Provider: Prakash Amaya Consulting Physician: Prakash Amaya Reason for Consult: suicide attempt 07/13/18 00:40 Social Work Referral Routine Comment: suicidal Physician Instructions: Reason For Exam: suicidal Hospital Course - Lab Results Lab Results: Most Recent Lab Values WBC 6.5 K/uL (4.8-10.8) 07/15/18 07:33 RBC 4.09 Mil/uL (3.80-5.20) 07/15/18 07:33 Hgb 12.1 g/dL (11.0-16.0) 07/15/18 07:33 Hct 34.9 % (34.0-47.0) 07/15/18 07:33 MCV 85.3 fL (81.0-99.0) 07/15/18 07:33 MCH 29.5 pg (27.0-31.0) 07/15/18 07:33 MCHC 34.6 g/dL (33.0-37.0) 07/15/18 07:33 RDW 13.9 % (11.5-14.5) 07/15/18 07:33 Plt Count 217 K/uL (130-400) 07/15/18 07:33 MPV 9.6 fL (7.2-11.7) 07/15/18 07:33 Neut % (Auto) 52.6 % (50.0-75.0) 07/15/18 07:33 Lymph % (Auto) 35.8 % (20.0-40.0) 07/15/18 07:33 Titus % (Auto) 7.3 % (0.0-10.0) 07/15/18 07:33 Eos % (Auto) 3.7 % (0.0-4.0) 07/15/18 07:33 Baso % (Auto) 0.6 % (0.0-2.0) 07/15/18 07:33 Neut # (Auto) 3.4 K/uL (1.8-7.0) 07/15/18 07:33 Lymph # (Auto) 2.3 K/uL (1.0-4.3) 07/15/18 07:33 Titus # (Auto) 0.5 K/uL (0.0-0.8) 07/15/18 07:33 Eos # (Auto) 0.2 K/uL (0.0-0.7) 07/15/18 07:33 Baso # (Auto) 0.0 K/uL (0.0-0.2) 07/15/18 07:33 PT 16.1 SECONDS (9.7-12.2) H 07/14/18 07:06 INR 1.5 07/14/18 07:06 Sodium 140 mmol/L (132-148) 07/15/18 07:33 Potassium 4.0 mmol/L (3.6-5.2) 07/15/18 07:33 Chloride 105 mmol/L (98-107) 07/15/18 07:33 Carbon Dioxide 24 mmol/L (22-30) 07/15/18 07:33 Anion Gap 15 (10-20) 07/15/18 07:33 BUN 7 mg/dL (7-17) 07/15/18 07:33 Creatinine 0.6 mg/dL (0.7-1.2) L 07/15/18 07:33 Est GFR ( Amer) > 60 07/15/18 07:33 Est GFR (Non-Af Amer) > 60 07/15/18 07:33 POC Glucose (mg/dL) 99 mg/dL (65-110) 07/12/18 22:05 Random Glucose 87 mg/dL (65-105) 07/15/18 07:33 Calcium 9.1 mg/dl (8.6-10.4) 07/15/18 07:33 Total Bilirubin 0.3 mg/dL (0.2-1.3) 07/15/18 07:33 AST 19 U/L (14-36) 07/15/18 07:33 ALT 18 U/L (9-52) 07/15/18 07:33 Alkaline Phosphatase 69 U/L (38-126) 07/15/18 07:33 Total Creatine Kinase 29 U/L (30-135) L 07/15/18 17:24 CK-MB (Mass) < 0.22 ng/mL (0.0-3.38) 07/15/18 17:24 Troponin I < 0.0120 ng/mL (0.00-0.120) 07/15/18 17:24 Total Protein 7.0 g/dL (6.3-8.3) 07/15/18 07:33 Albumin 4.2 g/dL (3.5-5.0) 07/15/18 07:33 Globulin 2.8 gm/dL (2.2-3.9) 07/15/18 07:33 Albumin/Globulin Ratio 1.5 (1.0-2.1) 07/15/18 07:33 Urine Color Yellow (YELLOW) 07/12/18 22:47 Urine Clarity Hazy (Clear) 07/12/18 22:47 Urine pH 7.0 (5.0-8.0) 07/12/18 22:47 Ur Specific [place] 1.011 (1.003-1.030) 07/12/18 22:47 Urine Protein Negative mg/dL (NEGATIVE) 07/12/18 22:47 Urine Glucose (UA) Normal mg/dL (Normal) 07/12/18 22:47 Urine Ketones Negative mg/dL (NEGATIVE) 07/12/18 22:47 Urine Blood Negative (NEGATIVE) 07/12/18 22:47 Urine Nitrate Negative (NEGATIVE) 07/12/18 22:47 Urine Bilirubin Negative (NEGATIVE) 07/12/18 22:47 Urine Urobilinogen Normal mg/dL (0.2-1.0) 07/12/18 22:47 Ur Leukocyte Esterase Trace Priscilla/uL (Negative) 07/12/18 22:47 Urine WBC (Auto) 9 /hpf (0-5) H 07/12/18 22:47 Urine RBC (Auto) 2 /hpf (0-3) 07/12/18 22:47 Ur Squamous Epith Cells 54 /hpf (0-5) H 07/12/18 22:47 Urine Bacteria Rare (<OCC) 07/12/18 22:47 Urine HCG, Qual Negative (NEGATIVE) 07/12/18 22:47 Salicylates 1.1 mg/dL 1 07/12/18 22:47 Urine Opiates Screen Negative (NEGATIVE) 07/12/18 22:47 Urine Methadone Screen Negative (NEGATIVE) 07/12/18 22:47 Acetaminophen < 10.0 ug/mL (10.0-30.0) L 07/13/18 16:33 Ur Barbiturates Screen Negative (NEGATIVE) 07/12/18 22:47 Ur Phencyclidine Scrn Negative (NEGATIVE) 07/12/18 22:47 Ur Amphetamines Screen Negative (NEGATIVE) 07/12/18 22:47 U Benzodiazepines Scrn Negative (NEGATIVE) 07/12/18 22:47 U Oth Cocaine Metabols Negative (NEGATIVE) 07/12/18 22:47 U Cannabinoids Screen Negative (NEGATIVE) 07/12/18 22:47 Alcohol, Quantitative < 10 mg/dl (0-10) 07/12/18 22:47 Attending/Attestation - Attestation I have personally seen and examined this patient.: Yes I have fully participated in the care of the patient.: Yes I have reviewed all pertinent clinical information, including history, physical exam and plan: Yes
--- NOTE | 2018-07-15 21:16 | PCM.BM ---
<Carlitos Nielsen - Last Filed: 07/15/18 21:15> Treatment Plan Problems - Problems identified on initial assessmt Suicidal Ideation Date Initiated: 07/15/18 Time Initiated: 19:30 Assessment reference: NA Status: Active Self harm Date Initiated: 07/15/18 Time Initiated: 19:30 Assessment reference: NA Status: Active Treatment assets and liabiliti Patient Assests: physically healthy, good support system Patient Liabilities: poor support system, relationship conflicts - Milieu Protocol Maintain good personal hygiene: daily Encourage regular showers, daily Remind patient to perform daily oral care, every shift Assist patient to perform ADL's Maintain personal safety: every shift Educate patient to report safety concerns to staff, every shift Monitor environment for contraband/sharps Medication safety: Monitor for expected outcome, potential side effects: every shift, Assess barriers to learning: every shift, Assess readiness for medication education: every shift Milieu Narrative: Will start Antidepressants once medically stable Continue 1:1 observation - s/p suicide attempt All risks, benefits and alternatives of the meds discussed, and the pt agreed and understood. Psychoeducation and support psychotherapy provided. Teach healthy lifestyle methods, i.e. diet, exercise, meditation 32 min Discharge/Continuing Care - Treatment Team Participation Patient/Family/SO Statement: Will start Antidepressants once medically stable Continue 1:1 observation - s/p suicide attempt All risks, benefits and alternatives of the meds discussed, and the pt agreed and understood. Psychoeducation and support psychotherapy provided. Teach healthy lifestyle methods, i.e. diet, exercise, meditation 32 min <Екатерина Grant - Last Filed: 07/16/18 14:17> Family Contact Family involvement: Patient does not wish Family/SO involvement Family contact: Patient declines to allow family contact at present - Goals for Treatment Patient goals for treatment: "I want to go to an outpatient program." Discharge/Continuing Care - Education Needs Education Needs: Patient Medication, Patient Diagnosis/Disease Process, Patient Coping Skills, Patient Placement options, Patient Community resources - Discharge Discharge Criteria: Free of Suicidal thoughts, Normal sleep pattern, Ability to care for self, Reduction of target symptoms Discharge to:: Home, With Family - Treatment Team Participation Discussed with Family/SO: No Was Patient/Family/SO present at Treatment Team Meeting: Yes
--- NOTE | 2018-07-16 00:11 | CARD ---
APPROVED REPORT Date of service: 07/12/2018 EKG Measurement Heart [id number] <Conclusion> Normal sinus rhythm with sinus arrhythmia Normal ECG
[2018-07-16 07:22] LABS: BASO # 0.1 K/uL (0.0-0.2); BASO % 0.9 % (0.0-2.0); EOS # 0.2 K/uL (0.0-0.7); EOS % 1.6 % (0.0-4.0); HEMOGLOBIN 12.2 g/dL (11.0-16.0); LYMPH # 2.2 K/uL (1.0-4.3); LYMPH % 22.4 % (20.0-40.0); MEAN CELL VOLUME 84.6 fL (81.0-99.0); MEAN CORPUSCULAR HEMOGLOBIN 29.3 pg (27.0-31.0); MEAN CORPUSCULAR HGB CONC 34.6 g/dL (33.0-37.0); MEAN PLATELET VOLUME 9.6 fL (7.2-11.7); MONO # 0.6 K/uL (0.0-0.8); MONO % 6.1 % (0.0-10.0); NEUT # 6.8 K/uL (1.8-7.0); RBC 4.16 Mil/uL (3.80-5.20); RED CELL DISTRIBUTION WIDTH 14.3 % (11.5-14.5)
[2018-07-16 07:31] LABS: WHITE BLOOD COUNT 9.9 K/uL (4.8-10.8)
[2018-07-16 07:46] LABS: ALB/GLOB RATIO 1.6 (1.0-2.1); ALBUMIN 4.3 g/dL (3.5-5.0); ALT/SGPT 17 U/L (9-52); AST/SGOT 21 U/L (14-36); BLOOD UREA NITROGEN 10 mg/dL (7-17); CALCIUM 9.2 mg/dl (8.6-10.4); GFR NON-AFRICAN AMERICAN > 60
--- NOTE | 2018-07-16 10:47 | PCM.PYCHPN ---
Psychiatric Progress Note - Psychiatric Progress Note Patient seen today, length of contact: 15 min Patient Chief Complaint: i am feeling depressed.' Problems Identified/Issues Discussed: Patient was seen and evaluated, chart reviewed and discussed with staff. Patient reports depressed mood and feelings of hopelessness and helplessness. She was crying throughout the interview. She reports irritability and agitation. She is still stating suicidal ideation. She denies any auditory hallucinations any paranoia. She is taking medication but denies any side effects. Supportive therapy was given Medication Change: Yes Medical Record Reviewed: Yes Mental Status Examination - Cognitive Function Orientation: Person, Place, Situation, Time Memory: Intact Attention: WNL Concentration: Poor Association: WNL Fund of Knowledge: Poor - Mood Mood: Depressed, Anxious - Affect Affect: Constricted, Depressed - Speech Speech: Soft - Formal Thought Process Formal Thought Process: No Impairment - Suicidal Ideation Suicidal Ideation: No - Homicidal Ideation Homicidal Ideation: No Goal/Treatment Plan - Goal/Treatment Plan Need for Continued Stay: Remain at risks for inpatient hospitalization Progress Toward Problem(s) and Goals/Treatment Plan: Major Depressive Disorder, Recurrent, Severe Without Psychotic Features PTSD s/p Suicide attempt by OD - Will start Antidepressants once medically stable Continue 1:1 observation - s/p suicide attempt All risks, benefits and alternatives of the meds discussed, and the pt agreed and understood. Psychoeducation and support psychotherapy provided. Teach healthy lifestyle methods, i.e. diet, exercise, meditation Pt to be admitted in 5E after discharge.
--- NOTE | 2018-07-16 11:48 | PCM.PYCHPN ---
Psychiatric Progress Note - Psychiatric Progress Note Patient seen today, length of contact: 15 min Patient Chief Complaint: i am feeling depressed.' Problems Identified/Issues Discussed: Patient was seen and evaluated, chart reviewed and discussed with staff. Patient reports depressed mood and feelings of hopelessness and helplessness. She was crying throughout the interview. She reports irritability and agitation. She is still stating suicidal ideation. She denies any auditory hallucinations any paranoia. She is taking medication but denies any side effects. Supportive therapy was given Pt reports that her BF broke up with her. she is feeling increasingly depressed and isolated. Medication Change: Yes Medical Record Reviewed: Yes Mental Status Examination - Cognitive Function Orientation: Person, Place, Situation, Time Memory: Intact Attention: WNL Concentration: Poor Association: WNL Fund of Knowledge: Poor - Mood Mood: Depressed, Anxious - Affect Affect: Constricted, Depressed - Speech Speech: Soft - Formal Thought Process Formal Thought Process: No Impairment - Suicidal Ideation Suicidal Ideation: No - Homicidal Ideation Homicidal Ideation: No Goal/Treatment Plan - Goal/Treatment Plan Need for Continued Stay: Remain at risks for inpatient hospitalization Progress Toward Problem(s) and Goals/Treatment Plan: Major Depressive Disorder, Recurrent, Severe Without Psychotic Features PTSD s/p Suicide attempt by OD Zoloft for depression Remeron for depression Trazodone for insomnia DC 1:1 observation - s/p suicide attempt All risks, benefits and alternatives of the meds discussed, and the pt agreed and understood. Psychoeducation and support psychotherapy provided. Teach healthy lifestyle methods, i.e. diet, exercise, meditation
[2018-07-18] MEDS ORDERED: Pneumococcal 23-Valent Vaccine IM ONE (10:00)
[2018-07-19] MEDS: ACETYLCYSTEINE IVPB ONE (07:34)
[2018-07-19] MEDS: DEXTROSE 5% IVPB ONE (07:34)
[2018-07-19] MEDS: WATER IVPB ONE (07:34)
--- NOTE | 2018-07-19 12:45 | PCM.PYCHPN ---
Psychiatric Progress Note - Psychiatric Progress Note Patient seen today, length of contact: 15 min Patient Chief Complaint: i am feeling better' Problems Identified/Issues Discussed: Patient was seen and evaluated, chart reviewed and discussed with staff. As per the staff she appears little better than before Patient reports some improvement in her depressed mood and feelings of hopelessness and helplessness. She denies any auditory hallucinations any paranoia. She is taking medication but denies any side effects. Supportive therapy was given Medication Change: Yes Medical Record Reviewed: Yes Mental Status Examination - Cognitive Function Orientation: Person, Place, Situation, Time Memory: Intact Attention: WNL Concentration: Poor Association: WNL Fund of Knowledge: Poor - Mood Mood: Depressed, Anxious - Affect Affect: Constricted, Depressed - Speech Speech: Soft - Formal Thought Process Formal Thought Process: No Impairment - Suicidal Ideation Suicidal Ideation: No - Homicidal Ideation Homicidal Ideation: No Goal/Treatment Plan - Goal/Treatment Plan Need for Continued Stay: Remain at risks for inpatient hospitalization Progress Toward Problem(s) and Goals/Treatment Plan: Major Depressive Disorder, Recurrent, Severe Without Psychotic Features PTSD s/p Suicide attempt by OD Zoloft for depression Remeron for depression Trazodone for insomnia All risks, benefits and alternatives of the meds discussed, and the pt agreed and understood. Psychoeducation and support psychotherapy provided. Teach healthy lifestyle methods, i.e. diet, exercise, meditation
--- NOTE | 2018-07-19 12:46 | PCM.PYCHPN ---
Psychiatric Progress Note - Psychiatric Progress Note Patient seen today, length of contact: 15 min Patient Chief Complaint: i am feeling better.'' Problems Identified/Issues Discussed: Patient was seen and evaluated, chart reviewed and discussed with staff. As per the staff she appears little better than before Patient reports some improvement in her depressed mood and feelings of hopelessness and helplessness. She reports irritability and agitation. She denies any auditory hallucinations any paranoia. She is taking medication but denies any side effects. Supportive therapy was given Medication Change: Yes Medical Record Reviewed: Yes Mental Status Examination - Cognitive Function Orientation: Person, Place, Situation, Time Memory: Intact Attention: WNL Concentration: Poor Association: WNL Fund of Knowledge: Poor - Mood Mood: Depressed, Anxious - Affect Affect: Constricted, Depressed - Speech Speech: Soft - Formal Thought Process Formal Thought Process: No Impairment - Suicidal Ideation Suicidal Ideation: No - Homicidal Ideation Homicidal Ideation: No Goal/Treatment Plan - Goal/Treatment Plan Need for Continued Stay: Remain at risks for inpatient hospitalization Progress Toward Problem(s) and Goals/Treatment Plan: Major Depressive Disorder, Recurrent, Severe Without Psychotic Features PTSD s/p Suicide attempt by OD Zoloft for depression Remeron for depression Trazodone for insomnia All risks, benefits and alternatives of the meds discussed, and the pt agreed and understood. Psychoeducation and support psychotherapy provided. Teach healthy lifestyle methods, i.e. diet, exercise, meditation
--- NOTE | 2018-07-19 12:46 | PCM.PYCHPN ---
Psychiatric Progress Note - Psychiatric Progress Note Patient seen today, length of contact: 15 min Patient Chief Complaint: i am feeling depressed.' Problems Identified/Issues Discussed: Patient was seen and evaluated, chart reviewed and discussed with staff. Patient reports soem improvement in her depressed mood and feelings of hopelessness and helplessness. She reports irritability and agitation. She denies any auditory hallucinations any paranoia. She is taking medication but denies any side effects. Supportive therapy was given Medication Change: Yes Medical Record Reviewed: Yes Mental Status Examination - Cognitive Function Orientation: Person, Place, Situation, Time Memory: Intact Attention: WNL Concentration: Poor Association: WNL Fund of Knowledge: Poor - Mood Mood: Depressed, Anxious - Affect Affect: Constricted, Depressed - Speech Speech: Soft - Formal Thought Process Formal Thought Process: No Impairment - Suicidal Ideation Suicidal Ideation: No - Homicidal Ideation Homicidal Ideation: No Goal/Treatment Plan - Goal/Treatment Plan Need for Continued Stay: Remain at risks for inpatient hospitalization Progress Toward Problem(s) and Goals/Treatment Plan: Major Depressive Disorder, Recurrent, Severe Without Psychotic Features PTSD s/p Suicide attempt by OD Zoloft for depression Remeron for depression Trazodone for insomnia All risks, benefits and alternatives of the meds discussed, and the pt agreed and understood. Psychoeducation and support psychotherapy provided. Teach healthy lifestyle methods, i.e. diet, exercise, meditation
[2018-07-21 06:38] VITALS: BP 95/60; PULSE 61; RESP 20; TEMP 97.5
--- NOTE | 2018-07-21 10:35 | PCM.PYCHDC ---
Mental Status Examination - Mental Status Examination Orientation: Person, Place, Situation, Time Memory: Intact Mood: Neutral Affect: Constricted Speech: Soft Attention: WNL Concentration: WNL Discharge Summary - Discharge Note Consultations:: List each consultation separately and include: 1. Reason for request. 2. Findings. 3. Follow-up Summary of Hospital Course include:: 1. Description of specific treatment plan utilized for patients during their course of treatmen. 2. Summarize the time- course for resolution of acute symptoms and/or regressed behaviors. 3. Describe issues identified and worked on during hospitalization. 4. Describe medication utilized. 5. Describe medical problems identified and treated. 6. Reassessment of suicide risk - Final Diagnosis (DSM 5) Condition upon Discharge: SERIOUS Disposition: HOME/ ROUTINE Follow-up Treatment Plan: Major Depressive Disorder, Recurrent, Severe Without Psychotic Features PTSD s/p Suicide attempt by OD Zoloft for depression Remeron for depression Trazodone for insomnia All risks, benefits and alternatives of the meds discussed, and the pt agreed and understood. Psychoeducation and support psychotherapy provided. Teach healthy lifestyle methods, i.e. diet, exercise, meditation Prescriptions/Medication Reconciliation: Mirtazapine [Remeron] 30 mg PO HS #30 tab Sertraline [Zoloft] 100 mg PO DAILY #30 tab traZODone [Desyrel] 50 mg PO HS PRN #30 tab PRN Reason: Insomnia
== END 2018-07-21 11:51 | disposition home or self-care (01) | DRG 812 ==
LOC: C.ER 21:06 → C.9E 23:16 → C.6T 23:29 → C.5E 07-15 15:55
PROVIDERS: ADMIT Psychiatry & Neurology Psychiatry; ATTEND Psychiatry & Neurology Psychiatry
PROC: GZ56ZZZ Individual Psychotherapy, Supportive (ICD-10-PCS; principal; 2018-07-12)
DX: T39.1X2A Poisoning by 4-Aminophenol derivatives, intentional self-harm, initial encounter (principal); F33.2 Major depressive disorder, recurrent severe without psychotic features; F43.10 Post-traumatic stress disorder, unspecified; G47.00 Insomnia, unspecified; Y92.009 Unspecified place in unspecified non-institutional (private) residence as the place of occurrence of the external cause; Z91.5 Personal history of self-harm; D56.9 Thalassemia, unspecified; M94.0 Chondrocostal junction syndrome [Tietze]; Z91.410 Personal history of adult physical and sexual abuse